=== PATIENT | male | born 1960 | race Caucasian/White ===

== ENCOUNTER 2022-04-21 14:13 | Emergency (ER) | payer OTHER, MEDICARE, MEDICAID, SELFPAY ==
--- NOTE | ~2022-04-21 | XR_ITS ---
EXAMINATION: XR ABDOMEN COMPLETE CLINICAL INDICATION: Reason for Exam evaluate for constipation/obstructive bowel patter COMPARISON: None TECHNIQUE: AP view of the abdomen. FINDINGS: Lines or devices: None. Nonobstructive bowel gas pattern. Moderate to large colonic stool burden. No extraluminal subdiaphragmatic air. Numerous calcified phleboliths in the pelvis. XR/XR abdomen 1V IMPRESSION: * Nonobstructive bowel gas pattern. Moderate to large colonic stool burden.
--- NOTE | ~2022-04-21 | CT_ITS ---
EXAMINATION: CT HEAD WITHOUT CONTRAST CLINICAL INFORMATION: Altered mental status COMPARISON: None TECHNIQUE: Contiguous axial imaging was performed from the skull base to vertex without intravenous administration of contrast. This CT examination was performed using dose optimization techniques as appropriate, variously including the following: *Automated exposure control *Adjustment of mA and/or kV according to patient size (this includes techniques or standardized protocols for targeted exams where dose is matched to indication/reason for exam; i.e. extremities or head) *Use of iterative reconstruction technique DLP: 670 mGy-cm FINDINGS: There is no evidence of an extra-axial collection. There is no evidence of intra or extra-axial hemorrhage. The ventricles and extra-axial CSF spaces are appropriate. Donaldson-white matter differentiation is normal. No mass, mass effect or infarct. Review of bone windows is normal. No skull fracture. Paranasal sinuses mastoid air cells and middle ears are clear. CT/CT head/brain wo IV con IMPRESSION: No acute intracranial pathology.
--- NOTE | ~2022-04-21 | XR_ITS ---
EXAMINATION: XR CHEST CLINICAL INFORMATION: Generalized weakness. COMPARISON: None TECHNIQUE: 2 views of the chest were obtained. FINDINGS: No significant abnormality is noted involving the heart, lungs, mediastinum, bony thorax or soft tissues. XR/XR chest 2V IMPRESSION: No acute cardiopulmonary process.
[2022-04-21 14:21] VITALS: BP 114/73; PULSE 105; O2SAT 99
[2022-04-21 14:22] VITALS: BP 114/77; PULSE 104; RESP 16; TEMP 36.8; O2SAT 100; BMI 28.2
--- NOTE | 2022-04-21 15:15 | ECG_ITS ---
Test Reason : GENERAL MEDICAL Blood Pressure : / mmHG Vent. Rate : 086 BPM Atrial Rate : 086 BPM P-R Int : 148 ms QRS Dur : 132 ms QT Int : 404 ms P-R-T Axes : 056 -09 094 degrees QTc Int : 483 ms Normal sinus rhythm Left bundle branch block Abnormal ECG No previous ECGs available Referred By: Krystyna Cheung Electronically Signed By:Yosef Uriostegui
[2022-04-21 17:01] LABS: MANUAL DIFF FLAG NO
--- NOTE | 2022-04-21 17:02 | ED_ITS ---
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 the patient apparently was started on a Clozaril 1 week ago and has been titrating up his current dose of Clozaril 75 mg at bedtime the patient offers no complaints but states that he is not hungry. He states he does not know who he was, where he is or what the date is. In reviewing his admission presentation from [facility] he had marked significantly flat affect, reported memory loss and refusal to answer certain questions. It was documented that he was able to state his name. per outpatient records at [facility], the patient was tolerating the Clozaril further notes with the exception of tachycardia that was subsequently treated with propranolol with good effect Related Data Previous Rx's Medication Instructions Recorded polyethylene glycol 3350 17 gram 17 g PO BEDTIME #14 ea 04/21/22 oral powder packet (Miralax) Allergies Allergy/AdvReac Type Severity Reaction Status Date / Time No Known Allergies Allergy Verified 04/21/22 15:15 Review of Systems Review of Systems: patient has limited participation review of systems Constitutional: Constitutional: Denies fever(s) Gastrointestinal: Gastrointestinal: Denies abdominal pain Neurologic: Denies Neuro-related abnormal movements and Reports behavioral changes Psychiatric: Psychiatric: Reports behavioral changes PMFSH Social History Social History Advance Directives: No Advance Directives Information Provided: No Physical Exam ED Vital Signs: Vital Signs - 24 hr 04/21/22 14:22 04/21/22 18:50 Temperature 98.2 F 97.7 F Pulse Rate 104 H 83 Respiratory Rate 16 16 Blood Pressure 114/77 104/65 Pulse Oximetry 100 96 Oxygen Delivery Method Room Air Room Air BMI result Body Mass Index 28.2 Const General: healthy appearing, comfortable, no acute distress, alert and awake Nutritional Appearance: well nourished Orientation/consciousness: patient oriented x3 Eyes Eyelids: Yes eyelids normal Conjunctivae: conjunctivae normal Sclerae: sclerae normal Corneas: corneas normal Pupils: Equal, round and reactive pupils present EOM: EOMs intact bilaterally Resp Effort & Inspection: normal respiratory effort, able to speak in complete sentences, no audible wheezes and not labored Skin General skin exam: no rashes or lesions noted and elasticity normal Lesions: no lesions Rashes: no rashes Neuro General: patient oriented x3 Cranial nerves: Yes Equal, round and reactive pupils present Extrem General: Yes full ROM Psych Appearance: grossly normal Speech and movement: Normal speech and movement present Affect: Other affect and mood findings present ( flat affect) Attitude: Refuses to answer (attititude/behavior) ( refuses to answer some questions. the patient is calm) Course Reevaluation(s) Reevaluation #1: patient's medical workup is unremarkable for any acute emergencies. CT scan of brain was unremarkable, lab work was unremarkable. Patient's x-ray of the abdomen did show significant constipation for which the patient will be started on MiraLax for. This is a known side effect of the patient's Cloazaril. Time: 19:33 Medical Decision Making Medical Decision Making [facility] Narrative: this is a 62-year-old male with past medical history significant for multiple psychiatric disorders. He is diagnosed history of memory loss and refusal to answer questions. He was apparently sent from inpatient psychiatric facility for a reported change in behavior in the last week since starting the Clozaril. The patient denies any complaints to me. He denies any abdominal pain or constipation. Given his refusal to answer multiple questions and lack of reliability we will get an x-ray to evaluate for constipation or bowel obstruction, as this can be a side effect of Clozaril. We will obtain a CT scan of brain to evaluate for metabolic cause of his symptoms, but I feel his symptoms are most likely related to his medication adjustment. We will get basic labs to compare to the patient's outpatient labs that were completed 2 days ago Differential Diagnosis Differential Diagnoses: The differential diagnosis associated with the presentation includes ( altered mental status, psychosis, schizophrenia, bipolar disorder, medication side effect, serotonin syndrome, neuroleptic malignant syndrome) Lab Data [facility] Lab Attestation statement: I reviewed the patient's lab results. no significant lab abnormalities noted 04/21/22 16:57 04/21/22 16:57 Labs: Lab Results 04/21/22 04/21/22 04/21/22 Range/Units 16:57 16:57 16:57 WBC 7.9 (4.8-10.8) X10*3/uL RBC 4.88 (4.60-5.80) X10*6/uL Hgb 15.4 (14.0-18.0) g/dl Hct 44.2 (42.0-52.0) % MCV 90.6 (80.0-98.0) fL MCH 31.6 (27.0-33.0) pg MCHC 34.8 (31.0-36.0) g/dl RDW 11.5 (11.0-16.0) % Plt Count 142 L (160-400) X10*3/uL MPV 9.8 (9.4-12.4) fL Immature Gran % (Auto) 0.3 (0.0-0.4) % Neut % (Auto) 77.6 H (45-73) % Lymph % (Auto) 14.7 L (20-40) % Glascock % (Auto) 6.6 (2-11) % Eos % (Auto) 0.5 (0-4) % Baso % (Auto) 0.3 (0-2) % Lymph # (Auto) 1.2 (1.2-4.9) X10*3/uL Glascock # (Auto) 0.5 (0.1-1.2) X10*3/uL Eos # (Auto) 0.0 (0.0-0.4) X10*3/uL Baso # (Auto) 0.0 (0.0-0.2) X10*3/uL Abs Immat Gran (auto) 0.02 (0.00-0.03) X10*3/uL Absolute Neuts (auto) 6.1 (2.0-8.3) x10*3/uL Absolute Nucleated RBC 0.000 (0.0-0.012) X10*3/uL Nucleated RBC % (auto) 0.0 (0.0-0.2) /100WBC PT 12.9 (10.0-13.1) SEC INR 1.1 (0.9-1.1) Sodium 141 (135-145) mmol/L Potassium 4.3 (3.3-5.1) mmol/L Chloride 106 (96-108) mmol/L Carbon Dioxide 23 (22-29) mmol/L Anion Gap 16 (12-20) BUN 23 H (9-16) mg/dL Creatinine 0.98 (0.5-1.4) mg/dL Estim Creat Clear Calc 94.3 Estimated GFR > 60 Random Glucose 77 (60-115) mg/dL Calcium 8.9 (8.4-10.2) mg/dL Magnesium 1.9 (1.6-2.6) mg/dL Total Bilirubin 1.2 H (0.0-1.0) mg/dL AST 18 (5-37) U/L ALT 19 (0-40) U/L Alkaline Phosphatase 96 (39-117) U/L Total Protein 6.1 L (6.5-8.0) g/dL Albumin 3.9 (3.5-5.0) g/dL Lipase 13 (8-78) U/L Ethyl Alcohol < 10 mg/dL Influenza Type A (PCR) (Negative) Influenza Type B (PCR) (Negative) RSV RNA Qual (PCR) (Negative) SARS-CoV-2 RNA (RT-PCR) (Negative) 04/21/22 Range/Units 16:57 WBC (4.8-10.8) X10*3/uL RBC (4.60-5.80) X10*6/uL Hgb (14.0-18.0) g/dl Hct (42.0-52.0) % MCV (80.0-98.0) fL MCH (27.0-33.0) pg MCHC (31.0-36.0) g/dl RDW (11.0-16.0) % Plt Count (160-400) X10*3/uL MPV (9.4-12.4) fL Immature Gran % (Auto) (0.0-0.4) % Neut % (Auto) (45-73) % Lymph % (Auto) (20-40) % Glascock % (Auto) (2-11) % Eos % (Auto) (0-4) % Baso % (Auto) (0-2) % Lymph # (Auto) (1.2-4.9) X10*3/uL Glascock # (Auto) (0.1-1.2) X10*3/uL Eos # (Auto) (0.0-0.4) X10*3/uL Baso # (Auto) (0.0-0.2) X10*3/uL Abs Immat Gran (auto) (0.00-0.03) X10*3/uL Absolute Neuts (auto) (2.0-8.3) x10*3/uL Absolute Nucleated RBC (0.0-0.012) X10*3/uL Nucleated RBC % (auto) (0.0-0.2) /100WBC PT (10.0-13.1) SEC INR (0.9-1.1) Sodium (135-145) mmol/L Potassium (3.3-5.1) mmol/L Chloride (96-108) mmol/L Carbon Dioxide (22-29) mmol/L Anion Gap (12-20) BUN (9-16) mg/dL Creatinine (0.5-1.4) mg/dL Estim Creat Clear Calc Estimated GFR Random Glucose (60-115) mg/dL Calcium (8.4-10.2) mg/dL Magnesium (1.6-2.6) mg/dL Total Bilirubin (0.0-1.0) mg/dL AST (5-37) U/L ALT (0-40) U/L Alkaline Phosphatase (39-117) U/L Total Protein (6.5-8.0) g/dL Albumin (3.5-5.0) g/dL Lipase (8-78) U/L Ethyl Alcohol mg/dL Influenza Type A (PCR) NEGATIVE (Negative) Influenza Type B (PCR) NEGATIVE (Negative) RSV RNA Qual (PCR) NEGATIVE (Negative) SARS-CoV-2 RNA (RT-PCR) NEGATIVE (Negative) Independent Interpretation I performed an independent interpretation of an: EKG and Plain X-Ray Interpretation: normal sinus rhythm with a rate of 86 beats per minute. Left bundle-branch block agree with radiology report of significant stool burden of the abdomen x-ray. Chest x-ray without acute abnormality Radiology Impression Discussion of test interpretation with radiology: I have reviewed the radiologist's reading. External Record Review External record reviewed: Outpatient record Discharge Plan Discharge Clinical Impression: Psychosis, Acute constipation Patient Disposition: Xfer Psychiatric Hosp Transfer Details: Back to [facility] Instructions: Constipation (ED) Additional Instructions: your workup in the emergency department was reassuring. We did find that your x-ray of your abdomen showed moderate constipation this is a known side effect of your recent medication change Clozaril he may continue taking the medication well will adding MiraLax every night to help with constipation increase fluid and fiber intake in your diet Prescriptions: New polyethylene glycol 3350 [Miralax] 17 gram powder in packet 17 g PO BEDTIME Qty: 14 0RF
[2022-04-21 17:08] LABS: Basophils Percent Auto 0.3 % (0-2); Eosinophils Percent Auto 0.5 % (0-4); Hematocrit 44.2 % (42.0-52.0); Hemoglobin 15.4 g/dl (14.0-18.0); Imm Gran Abs Auto 0.02 X10*3/uL (0.00-0.03); Imm Gran Pct Auto 0.3 % (0.0-0.4); Lymphocytes Absolute Auto 1.2 X10*3/uL (1.2-4.9); Lymphocytes Percent Auto 14.7 % (20-40); Mean Corpuscular HGB Conc 34.8 g/dl (31.0-36.0); Mean Corpuscular Hemoglobin 31.6 pg (27.0-33.0); Mean Corpuscular Volume 90.6 fL (80.0-98.0); Mean Platelet Volume 9.8 fL (9.4-12.4); Monocytes Absolute Auto 0.5 X10*3/uL (0.1-1.2); Monocytes Percent Auto 6.6 % (2-11); Neutrophils Absolute Auto 6.1 x10*3/uL (2.0-8.3); Neutrophils Percent Auto 77.6 % (45-73); Platelet Count 142 X10*3/uL (160-400); Red Blood Count 4.88 X10*6/uL (4.60-5.80); Red Cell Distribution Width 11.5 % (11.0-16.0); White Blood Count 7.9 X10*3/uL (4.8-10.8)
[2022-04-21 17:19] LABS: INTERNATIONAL NORM RATIO 1.1 (0.9-1.1); Prothrombin Time 12.9 SEC (10.0-13.1)
[2022-04-21 17:21] LABS: Alanine Aminotransferase 19 U/L (0-40); Albumin Level 3.9 g/dL (3.5-5.0); Alkaline Phosphatase 96 U/L (39-117); Anion Gap 16 (12-20); Aspartate Amino Transferase 18 U/L (5-37); Bilirubin Total 1.2 mg/dL (0.0-1.0); Blood Urea Nitrogen 23 mg/dL (9-16); Calcium 8.9 mg/dL (8.4-10.2); Carbon Dioxide 23 mmol/L (22-29); Chloride 106 mmol/L (96-108); Creatinine Clr Calc Pharmacy 94.3; Estimated Glomerular Filt Rate > 60; Ethanol < 10 mg/dL; Glucose Random 77 mg/dL (60-115); Lipase 13 U/L (8-78); Magnesium 1.9 mg/dL (1.6-2.6); Potassium 4.3 mmol/L (3.3-5.1); Sodium 141 mmol/L (135-145); Total Protein 6.1 g/dL (6.5-8.0)
[2022-04-21 17:47] LABS: Influenza A PCR NEGATIVE (Negative); Influenza B PCR NEGATIVE (Negative); Resp Syncy Virus RNA Qual PCR NEGATIVE (Negative); SARS COV2 PCR INHOUSE NEGATIVE (Negative)
[2022-04-21 18:50] VITALS: BP 104/65; PULSE 83; RESP 16; TEMP 36.5; O2SAT 96
[2022-04-21 20:57] VITALS: BP 128/61; PULSE 65; RESP 16; TEMP 36.7; O2SAT 94
--- NOTE | 2022-04-26 10:29 | PHA.MEDREC ---
Pharmacy Consult ? Medication Reconciliation Pharmacy has completed the medication reconciliation.
== END 2022-04-21 22:40 ==
PROVIDERS: Physician Assistant Medical; Emergency Provider Emergency Medicine
DX: K59.00 Constipation, unspecified (principal); F29 Unspecified psychosis not due to a substance or known physiological condition; R63.0 Anorexia; R00.0 Tachycardia, unspecified; R10.9 Unspecified abdominal pain; Z20.822 Contact with and (suspected) exposure to COVID-19; Z20.828 Contact with and (suspected) exposure to other viral communicable diseases; Z79.899 Other long term (current) drug therapy
CPT/HCPCS: 0241U; 70450; 71046; 74018; 80053; 82077; 83690; 83735; 85025; 85610; 93005; 99283; 99284